=== PATIENT | male | born 1945 | race Caucasian/White ===

== ENCOUNTER → 2024-01-01 11:01 | Outpatient (REF) | payer MEDICARE, OTHER, SELFPAY | LOC: MRI 3T 11:01 | PROVIDERS: ATTENDING PHYSICIAN Physician Assistant; FAMILY PHYSICIAN Family Medicine | DX: M25.551 Pain in right hip (principal) | CPT/HCPCS: 72148; 73721 ==

== ENCOUNTER → 2024-07-14 06:19 | Outpatient (REF) | payer MEDICARE, OTHER, SELFPAY | LOC: MRI 06:19 | PROVIDERS: ATTENDING PHYSICIAN Specialist; FAMILY PHYSICIAN Family Medicine | DX: M25.511 Pain in right shoulder (principal) | CPT/HCPCS: 73221 ==